=== PATIENT | female | born 1995 | race Caucasian/White ===

== ENCOUNTER 2019-09-18 07:25 | Emergency (ER) | payer OTHER ==
[2019-09-18] MEDS ORDERED: ACETAMINOPHEN 325 MG TABLET PO ONE (11:07)
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
[2019-09-18 13:27] VITALS: BP 116/64
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
== END 2019-09-18 13:27 | disposition home or self-care (01) ==
LOC: ER 07:25
DX: S16.1XXA Strain of muscle, fascia and tendon at neck level, initial encounter (principal); R51 Headache; M54.2 Cervicalgia; M54.9 Dorsalgia, unspecified; V49.49XA Driver injured in collision with other motor vehicles in traffic accident, initial encounter; Y93.89 Activity, other specified; F17.210 Nicotine dependence, cigarettes, uncomplicated; Z88.8 Allergy status to other drugs, medicaments and biological substances; Z88.2 Allergy status to sulfonamides
CPT/HCPCS: 70450; 72125

== ENCOUNTER 2020-04-10 13:28 | Emergency (ER) | payer SELFPAY ==
[2020-04-10 13:34] VITALS: BP 108/60
[2020-04-10 14:20] LABS: AMORPHOUS SEDIMENT,URINE TRACE /HPF; APPEARANCE,URINE SLIGHTLY-CLOUDY; BILIRUBIN,URINE NEGATIVE (NEGATIVE); COLOR,URINE AMBER; GLUCOSE, URINE NEGATIVE (NEGATIVE); KETONES,URINE NEGATIVE (NEGATIVE); LEUKOCYTE ESTERASE,URINE MODERATE (NEGATIVE); NITRITE,URINE POSITIVE (NEGATIVE); PROTEIN,URINE 30 mg/dL (NEGATIVE); URINE SPECIFIC GRAVITY 1.018
--- NOTE | 2020-04-10 14:28 | ER Document Report ---
HPI - HPI Time Seen by Provider: 04/10/20 13:50 Pain Level: Denies Notes: Otherwise healthy 25-year-old female presenting to the emergency department with complaints of dysuria and urinary urgency and frequency. Patient reports she thinks she has a urinary tract infection. She states she has no pain until she urinates and then has a burning sensation afterwards. She denies any abdominal pain, pelvic pain, nausea, vomiting, diarrhea, fever, chills or abnormal vaginal discharge. - ROS Systems Reviewed and Negative: Yes All other systems reviewed and negative - CONSTITUTIONAL Constitutional: DENIES: Fever, Chills - CARDIOVASCULAR Cardiovascular: DENIES: Chest pain - RESPIRATORY Respiratory: DENIES: Trouble Breathing - GASTROINTESTINAL Gastrointestinal: DENIES: Abdominal Pain - URINARY Urinary: REPORTS: Dysuria, Frequency - REPRODUCTIVE LMP: One month ago Reproductive: DENIES: : Past Medical History - General Information source: Patient - Social History Smoking Status: Current Every Day Smoker Frequency of alcohol use: Rare Drug Abuse: Marijuana Family History: Reviewed & Not Pertinent Psychiatric Medical History: Reports: Hx Attention Deficit Hyperactivity Disorder, Hx Depression - anxiety, bipolar Vertical Provider Document - CONSTITUTIONAL Notes: PHYSICAL EXAMINATION: GENERAL: Well-appearing, well-nourished and in no acute distress. HEAD: Atraumatic, normocephalic. EYES: Pupils equal round extraocular movements intact, conjunctiva are normal. ENT: Nares patent NECK: Normal range of motion LUNGS: No respiratory distress Abdomen: Abdomen soft, nontender, no CVA tenderness. Musculoskeletal: Normal range of motion NEUROLOGICAL: Normal speech, normal gait. PSYCH: Normal mood, normal affect. SKIN: Warm, Dry, normal turgor, no rashes or lesions noted. Course - Re-evaluation Re-evalutation: Patient appears well, nontoxic, she is afebrile. Her urinalysis is consistent with urinary tract infection. She will be started on antibiotics. Culture pending. Patient understands ED return precautions. - Vital Signs Vital signs: Temp Pulse Resp BP Pulse Ox 98.0 F 74 16 108/60 99 04/10/20 13:32 04/10/20 13:32 04/10/20 13:32 04/10/20 13:32 04/10/20 13:32 - Laboratory Laboratory results interpreted by me: 04/10/20 13:58 Urine Protein 30 H Urine Blood MODERATE H Urine Nitrite POSITIVE H Urine Urobilinogen 2.0 H Ur Leukocyte Esterase MODERATE H Discharge - Discharge Clinical Impression: Urinary tract infection Qualifiers: Urinary tract infection type: site unspecified Hematuria presence: with hematuria Qualified Code(s): N39.0 - Urinary tract infection, site not specified Condition: Stable Disposition: HOME, SELF-CARE Instructions: Urinary Tract Infection ([facility]) Additional Instructions: Increase fluid intake. Take medications as prescribed. Return if you develop fever greater than 101 or start vomiting. Prescriptions: Cephalexin [Keflex] 500 mg PO QID #28 capsule Forms: Return to Work
== END 2020-04-10 14:34 | disposition home or self-care (01) ==
LOC: ER 13:28
DX: N39.0 Urinary tract infection, site not specified (principal); F17.200 Nicotine dependence, unspecified, uncomplicated
CPT/HCPCS: 81001; 81025; 87086; 87088; 87186; 99283